=== PATIENT | male | born 1945 | race Caucasian/White ===

== ENCOUNTER → 2020-04-28 | Outpatient (CLI) | payer MEDICARE, OTHER ==
[~2020-04-28] MED LIST: AMIO200T6 PO; ASPI-1012 PO; CARV3.12 PO; ESOM40CA PO; IOHEXOL-350 75 ML VIAL IV ONE; LEVO500T2 PO; LOSA100T58 PO; SIMV-43 PO
== END | disposition home or self-care (01) ==
LOC: RAH 08:55
PROVIDERS: ATTEND Internal Medicine Cardiovascular Disease
DX: I71.4 Abdominal aortic aneurysm, without rupture (principal); I51.7 Cardiomegaly; I25.10 Atherosclerotic heart disease of native coronary artery without angina pectoris
CPT/HCPCS: 74174; Q9967